=== PATIENT | male | born 1980 | race Caucasian/White ===

== ENCOUNTER 2016-05-30 13:08 | Emergency (ER) | payer SELFPAY ==
[2016-05-30 14:23] LABS: ABSOLUTE NEUTROPHIL COUNT 6.2 K/mm3 (1.8-7.7); BASO # 0.1 K/mm3 (0.0-0.2); BASO % 0.6 % (0.2-1.0); EOS # 0.3 (0.0-0.5); EOS % 2.9 % (0.9-2.9); HEMATOCRIT 48.3 % (32.0-52.0); HEMOGLOBIN 16.5 gm/l (14.0-18.0); IMM NEUT% 0.3 % (0-1); LYMPH # 1.9 (1.0-4.8); LYMPH % 20.8 % (15-45); MEAN CELL VOLUME 86.1 fl (80.0-94.0); MEAN CORPUSCULAR HEMOGLOBIN 29.4 pg (27.0-31.0); MEAN CORPUSCULAR HGB CONC 34.2 g/dl (33.0-37.0); MEAN PLATELET VOLUME 9.4 fl (7.4-10.4); MONO # 0.8 (0.0-0.8); MONO % 8.9 % (4-12); NEUT % 66.5 % (43-75); PLATELET COUNT 256 K/mm3 (130-400); RED CELL DISTRIBUTION WIDTH 11.8 % (11.5-14.5)
[2016-05-30 14:42] LABS: ALB/GLOB RATIO 1.2 (>1.0); ALBUMIN 4.1 gm/dL (3.5-5.7); CALCIUM 9.7 mg/dL (8.6-10.3)
--- NOTE | 2016-05-30 15:30 | RAD ---
Exam: Two-view chest COMPARISON: None INDICATION: Cough and pain all over. Findings: PA and lateral views of the chest were obtained. Cardiac silhouette is within normal limits. Lungs are normally inflated. There is no focal airspace disease or pleural effusion. Bones of the chest wall within normal limits. IMPRESSION: Negative two-view chest.
== END 2016-05-30 16:00 | disposition home or self-care (01) ==
LOC: ED 13:08
DX: J06.9 Acute upper respiratory infection, unspecified (principal); R06.02 Shortness of breath; R11.0 Nausea; F17.210 Nicotine dependence, cigarettes, uncomplicated